=== PATIENT | male | born 1955 | race Two or more races ===

== ENCOUNTER 2024-03-07 09:28 | Outpatient (AMB) | payer OTHER, SELFPAY ==
--- NOTE | 2024-03-07 09:43 | MHC.OFFVIS ---
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 He describes his pains as sharp in nature. Did have cortisone injections given into both of his knee several years ago. He got fairly good relief temporary relief from those injections. He states that his right knee will give out at times. He has tried Tylenol and ibuprofen which gave him only mild relief. He has done physical therapy exercises which aggravated his pain. He states that he has difficulty walking even short distances because of his pains. He wishes to hold off on surgery for as long as possible. 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 Allergies Penicillins Allergy (Unknown, Verified 03/07/24 09:44) Unknown Medication List - Last Reconciled 03/07/24 by Hugo Soto MD amlodipine 5 mg PO DAILY aspirin 81 mg PO DAILY hydrochlorothiazide 25 mg PO DAILY isosorbide mononitrate ER 30 mg PO DAILY losartan 100 mg PO DAILY melatonin 3 mg PO BEDTIME omeprazole 20 mg PO DAILY sertraline 50 mg PO DAILY Physical Exam Vital Signs: BMI result Body Mass Index 35.2 Const Other: Well-nourished well-developed very friendly male awake alert and oriented x3 in no acute distress Extrem Other: Bilateral lower extremity examination shows good capillary refill, no skin lesions noted, normal sensation light touch Bilateral knee examination shows minimal effusions, palpable crepitus with range of motion, pain with range of motion, range of motion from-3 degrees to 115 degrees, no instability Office Procedures AMB Joint Injection/Aspiration Joint Injection/Aspiration Primary Site: right knee Prep: site was prepped using aseptic technique Injected: 40 mg of, DepoMedrol and 1% plain lidocaine Procedure: The patient tolerated the procedure well Coding - Large joint Procedure code (CPT) selection complete AMB Joint Injection/Aspiration Joint Injection/Aspiration Primary Site: left knee Prep: site was prepped using aseptic technique Injected: 40 mg of, DepoMedrol and 1% plain lidocaine Procedure: The patient tolerated the procedure well Coding 34449 - Large joint Procedure code (CPT) selection complete Results Reviewed Results Reviewed: X-rays of the patient's bilateral knees show joint space narrowing, subchondral sclerosis, no acute bony abnormalities Assessment & Plan Assessment & Plan (1) Arthritis of right knee: Code(s): M17.11 - Unilateral primary osteoarthritis, right knee Category: Medical Plan Dimitri presents with bilateral knee pains due to osteoarthritis. I had a lengthy discussion with the patient regarding the treatment options. The risks and benefits of bilateral knee cortisone injections were discussed at length with the patient. The patient wished to proceed. He tolerated the injections well. Prior to his left knee injection I aspirated 12 cc of clear fluid from his left knee. Prior to his right knee injection I aspirated 1 cc of clear fluid from his right knee. The patient tolerated the injections well. He will continue with his activity modifications. He will contact me prior to his follow-up appointment 3 months should any questions or concerns arise. Feel free to call me at any time should questions regarding his orthopedic management arise. Thank you very much for asking me to see this very friendly gentleman. I spent 22 minutes in reviewing the patient's records and imaging studies, seeing the patient and documenting in the medical record. Orders: Orders XR knee RT 3V Today M25.561 - Pain in right knee AMB Joint Injection/Aspiration Today M17.12 - Unilateral primary osteoarthritis, left knee AMB Joint Injection/Aspiration Today M17.11 - Unilateral primary osteoarthritis, right knee XR knee LT 3V Today M25.562 - Pain in left knee Medications: New naproxen 500 mg PO Q12H PRN 60 tabs 3RF pain Coding Level of Care Code New Pt Level 3 (74717) Complex EM visit Add On G2211 Diagnoses Arthritis of right knee M17.11 CPT Codes Coding - 43104 Large joint: 34538 - Large joint ([id number]) Coding - 70617 Large joint: 79391 - Large joint ([id number])
[2024-03-07 10:04] VITALS: BMI 35.2
== END 2024-03-07 10:34 | disposition home or self-care (01) ==
PROVIDERS: Visit Provider Orthopaedic Surgery
DX: M17.11 Unilateral primary osteoarthritis, right knee (principal)
CPT/HCPCS: 20610; 99204

== ENCOUNTER 2024-03-07 10:07 | Outpatient (REF) | payer OTHER, SELFPAY | END 2024-03-07 10:08 | disposition home or self-care (01) | LOC: HO.HOSX 10:07 | PROVIDERS: Visit Provider Orthopaedic Surgery | DX: M17.0 Bilateral primary osteoarthritis of knee (principal); M25.561 Pain in right knee; M25.562 Pain in left knee | CPT/HCPCS: 20610; 73562; 99202; J1010; J2003 ==

== ENCOUNTER 2024-06-05 12:28 | Outpatient (AMB) | payer OTHER, SELFPAY ==
--- NOTE | 2024-06-05 12:45 | MHC.OFFVIS ---
Vital Signs 06/05/24 12:49 Height 5 ft 10 in Weight 245 lb BMI 35.2 Intake Visit Reasons: Bilateral knee pains, Left shoulder pain and weakness Intake Note: Dimitri is a 68 year old male who presents with complaints of progressively worsening bilateral knee pains as well as left shoulder pain and weakness. The patient states that he injured his left shoulder several years ago while lifting a heavy object. Since that time he has not been able to lift his left hand above shoulder height. He has done physical therapy which aggravated his pain. He has also tried Tylenol and anti-inflammatory medicines which gave him minimal relief. He has failed the last 6 weeks of conservative treatment. He has tried topical creams as well as cortisone injections which gave him minimal relief. The patient describes his knee pains as sharp in nature. He wishes to hold off on total knee replacement surgery for as long as possible. He has had cortisone injections given into his knees which gave him fairly good relief. Allergies Penicillins Allergy (Unknown, Verified 06/05/24 12:49) Unknown Medication List - Last Reconciled 06/05/24 by Hugo Soto MD amlodipine 5 mg PO DAILY aspirin 81 mg PO DAILY hydrochlorothiazide 25 mg PO DAILY isosorbide mononitrate ER 30 mg PO DAILY losartan 100 mg PO DAILY melatonin 3 mg PO BEDTIME naproxen 500 mg PO Q12H PRN omeprazole 20 mg PO DAILY sertraline 50 mg PO DAILY Physical Exam Vital Signs: BMI result Body Mass Index 35.2 Const Other: Well-nourished well-developed very friendly male awake alert and oriented x3 in no acute distress Extrem Other: Left shoulder examination shows decreased range of motion when compared to his right shoulder, 3/5 strength with supraspinatus testing, positive impingement signs, no instability Bilateral knee examination shows palpable crepitus with range of motion, pain with range of motion, range of motion from -3 degrees to 110 degrees, no instability Office Procedures AMB Joint Injection/Aspiration Joint Injection/Aspiration Primary Site: left knee Prep: site was prepped using aseptic technique Injected: 40 mg of, DepoMedrol and 1% plain lidocaine Procedure: The patient tolerated the procedure well Coding 25866 - Large joint Procedure code (CPT) selection complete AMB Joint Injection/Aspiration Joint Injection/Aspiration Primary Site: right knee Prep: site was prepped using aseptic technique Injected: 40 mg of, DepoMedrol and 1% plain lidocaine Procedure: The patient tolerated the procedure well Coding 93827 - Large joint Procedure code (CPT) selection complete Results Reviewed Results Reviewed: X-rays of the patient's bilateral knees taken previously show joint space narrowing, subchondral sclerosis, no acute bony abnormalities Assessment & Plan Assessment & Plan (1) Rotator cuff insufficiency of left shoulder: Code(s): M25.312 - Other instability, left shoulder Category: Medical (2) Arthritis of right knee: Code(s): M17.11 - Unilateral primary osteoarthritis, right knee Category: Medical (3) Arthritis of left knee: Code(s): M17.12 - Unilateral primary osteoarthritis, left knee Category: Medical Plan Dimitri presents with bilateral knee pains due to degenerative joint disease. The risks and benefits of bilateral knee cortisone injections were discussed at length with the patient. The patient wished to proceed. He tolerated the injections well. He also has left shoulder pain and weakness most likely due to a full-thickness rotator cuff tear. Thus, I will send the patient for an MRI of his left shoulder for further evaluation. I will see him back once the MRI is completed to discuss the findings and treatment options. Feel free to call me at any time should questions regarding his orthopedic management arise. I spent 20 minutes in reviewing the patient's records and imaging studies, seeing the patient and documenting in the medical record. Orders: Orders AMB Joint Injection/Aspiration 06/05/24 M17.12 - Unilateral primary osteoarthritis, left knee AMB Joint Injection/Aspiration 06/05/24 M17.11 - Unilateral primary osteoarthritis, right knee MR shoulder LT wo con 06/05/24 M25.312 - Other instability, left shoulder Coding Level of Care Code Est Pt Level 3 (26439) Complex EM visit Add On G2211 Diagnoses Rotator cuff insufficiency of left shoulder M25.312 Arthritis of right knee M17.11 Arthritis of left knee M17.12 CPT Codes Coding - 71693 Large joint: 91047 - Large joint ([id number]) Coding - 51611 Large joint: 61258 - Large joint ([id number])
[2024-06-05 12:49] VITALS: BMI 35.2
--- OUTSIDE RECORDS SUMMARY | 2024-06-05 14:31 | XMS_ITS | Clinical Summary ---
Author Organization [facility] Address [address] [place] [address] Care Team Providers Care Director [employer] Name Role Phone Whitney Manzo NP Primary Care Provider Source Comments PLEASE NOTE, if this patient is a minor, it may be UNLAWFUL to discuss sensitive information that is contained in these records (such as FAMILY PLANNING, MENTAL HEALTH or SUBSTANCE ABUSE) with the minor patient's parent or other person without the patient's specific authorization.[facility] Allergies Active Allergy Reactions Criticality Noted Date Comments Penicillins 01/12/2021 Medications ibuprofen 800 mg tablet 1 Active blood pressure monitorIndicatio ns:Essential hypertension Lifetime need 1 Kit 3 Active amLODIPine (NORVASC) 5 mg tabletIndication s:Essential hypertension Take 1 Tablet by mouth once daily 90 Tablet 4 Active aspirin [address] tabletIndication s:Essential hypertension Take 1 Tablet by mouth once daily 90 Tablet 1 4 Active hydroCHLOROthiaz sharri (HYDRODIURIL) 25 mg tabletIndication s:Essential hypertension TOME JENNIFER TABLETA TODOS LOS TIDWELL Strength: 25 mg 90 Tablet 1 4 Active isosorbide mononitrate ER (IMDUR) 30 mg 24 hr tabletIndication s:Essential hypertension TOME JENNIFER TABLETA TODOS LOS TIDWELL EN LA MANANA 90 Tablet 4 Active melatonin 3 mg tabletIndication s:Poor sleep TAKE 1 TABLET BY MOUTH NIGHTLY AT BEDTIME NEEDED FOR SLEEP 90 Tablet 1 4 Active doxylamine succinate (SLEEP AID, DOXYLAMINE,) 25 mg tabletIndication s:Insomnia, unspecified type Take 1 Tablet by mouth nightly at bedtime as needed for sleep for sleep 90 Tablet 4 Active furosemide (LASIX) 40 mg tabletIndication s:Bilateral leg edema Take 1 Tablet by mouth once daily 14 Tablet 4 Active compress.stockin g,knee,reg,medIn dications:Bilate ral leg edema Please dispense 1 pairs of compression stockings 15 mmhg 3 Each 4 Active sertraline (ZOLOFT) 50 mg tabletIndication s:Anxiety and depression TAKE 1 TABLET BY MOUTH ONCE DAILY 90 Tablet 3 4 Active atorvastatin (LIPITOR) 20 mg tabletIndication s:Hypercholester olemia TAKE 1 TABLET BY MOUTH AT BEDTIME 90 Tablet 3 4 Active losartan (COZAAR) 100 mg tablet TAKE 1 TABLET BY MOUTH ONCE DAILY 90 Tablet 2 4 Active omeprazole (PRILOSEC) [address] capsuleIndicatio ns:Gastroesophag eal reflux disease, unspecified whether esophagitis present TAKE 1 CAPSULE BY MOUTH IN THE MORNING BEFORE BREAKFAST 30 Capsule 5 5 Active Active Problems Problem Noted Date Diagnosed Date PVC (premature ventricular contraction) 08/03/19 Overview (12/15/2022): 12/14/22: seen with PVC 09/19/22: seen with PVC c/w amlodipine 09/09/21: seen with PVC Holter and echo ordered unclear if pt completed this or not PR (myocardial infarction) ([facility]) 01/12/2021 Overview (01/12/2021): Verbal report from pt Class 2 severe obesity with serious comorbidity and body mass index (BMI) of 37.0 to 37.9 in adult ([facility]) 01/11/2021 Essential hypertension 01/11/2021 Overview (08/02/2022): 12/2021: followed with PVC last appt Seeing Cardiology at [place]. Hypercholesterolemia 01/11/2021 Anxiety and depression 01/11/2021 Primary osteoarthritis of both knees 12/13/2020 Overview (08/02/2022): Seeing [facility] for knee pain. Resolved Problems Problem Noted Date Diagnosed Date Resolved Date Diarrhea 01/12/2021 02/11/2021 Immunizations Name Administration Dates Next Due Flu, High Dose, 65y+, Fluzon e High Dose 03/24/2022,01/12/2021 Influenza (FLUBLOK),recombinant,injectable,prese rvative Free 01/29/2024(Deferred: Different Brand Given) Influenza (FLUZONE), high-do se, trivalent, PF 01/29/2024 PNEUMOCOCCAL POLYSACCHARIDE PPV23 08/02/2022, TDAP 01/12/2021 ZOSTER VACCINE, RECOMBINANT (SHINGRIX) ,01/12/2021 Family History Medical History Relation Name Comments cardaic issues Father Ovarian cancer Mother Relation Name Status Comments Father Alive Mother Alive Social History Tobacco Use Types Packs/Day Years Used Date Smoking Tobacco: Former Passive Smoke Exposure: Never Smokeless Tobacco: Never Tobacco Cessation:Counseling Given: Not Answered Comments:11/08/22: was smoking in the past socially Alcohol Use Standard Drinks/Week Comments Not Currently 0 (1 standard drink = 0.6 oz pur e alcohol) Social Connections Answer Date Recorded Connectedness 1 01/29/2024 Financial Resource Strain Answer Date R ecorded Financial Resource Strain 1 2023 Stress Answer Date Recorded Stress 1 01/29/2024 Physical Activity Answer Date Recorded Physical Activity 0 11/10/2020 Food Insecurity Answer Date Recorded Food 1 01/29/2024 Transportation Needs Answer Date Record ed Transportation 1 01/29/2024 Housing Stability Answer Date Recorded Housing 1 01/29/2024 Safety and Environment Answer Date Cristian rded Safety 1 07/25/2023 Utilities Answer Date Recorded Utilities 1 01/29/2024 Employment Answer Date Recorded Stress 0 11/23/2021 Sex and Gender Information Value Date Recorded Sex Assigned at Male 11/17/2020 10:36 AM PDT Legal Sex Male 12:42 PM PDT Gender Identity Male 11/17/2020 10:36 AM PDT Sexual Orientation Straight 01/29/2024 10 :08 AM PST Occupation Industry Job Start Date Job End Date unemployed Not on file Not on file Not on file Last Filed Vital Signs Vital Sign Reading Time Taken Comments Blood Pressure 138/80 01/29/2024 1:34 PM EST Pulse 91 01/29/2024 1:34 PM EST Temperature 37 ??C (98.6 ??F) 01/29/2024 1:34 PM EST Respiratory Rate 20 01/29/2024 1:34 PM EST Oxygen Saturation 97% 01/29/2024 1:34 PM EST Inhaled Oxygen Concentration - - Weight 113.4 kg (250 lb) 01/29/2024 1:34 PM EST Height 167.6 cm (5' 6 ) 07/25/2023 3:08 PM EDT Body Mass Index 40.35 07/25/2023 3:08 PM EDT Plan of Treatment Upcoming Encounters Date Type Department Care Team (Late st Contact Info) Description 06/20/2024 11:20 AM EDT Office Visit [facility] [address] [place] [id number] Peter Cabrlaes PA-C [address] [place] [address] Health Maintenance Due Date Last Done Comments CT Colonography 08/16/1999 Colonoscopy 08/16/1999 Colorectal Cancer Screening 08/16/1999 FIT/gFOBT 08/16/1999 Fecal DNA 08/16/1999 Flexible Sigmoidoscopy 08/16/1999 Abdominal Aortic Aneurysm Screening 08/16/2019 Imm-Pneumococcal 65+ (2 of 2 - PCV) 08/03/2023 08/02/2022, 01/12/2021 Medicare Annual Wellness Visit 11/09/2023 11/08/2022 , 01/12/2021 [id number] ( season) 2023 Alcohol and Drug Screen 03/27/2024 01/29/20 24, 04/24/2023, 08/02/2022, Additional history exists Falls Prevention 04/24/2024 04/24/2023, , 01/12/2021, Additional history exists Lipid Screening 04/24/2024 04/24/2023, 12/11/2021, 11/10/2020 Depression Monitoring 04/30/2024 01/29/2024 , 07/25/2023, 04/24/2023, Additional history exists Tobacco Screening 01/28/2025 01/29/2024, 01/12/2021 Diabetes Screening 01/28/2027 01/29/2024, 0 04/24/2023, 03/24/2022, Additional history exists Imm-DTaP/Tdap/Td (2 - Td or Tdap) 01/12/2031 021 Imm-Zoster, Recombinant Completed 03/24/2022, 01/12 Hepatitis C Screening Completed 01/29/2024 Imm-Influenza Completed 01/29/2024, 02/25, 01/12/2021 Procedures Procedure Name Priority Date/Time Associated Diagnosis Comments MEDICATIONS SCANNED DOCUMENT 05/17/2024 3:00 AM EST REFERRAL TO ORTHOPEDICS Routine 03/07/2024 3:00 AM EST Primary osteoarthritis of both knees HEPATITIS C AB W/RFLX HCV RNA, QT, RT PCR Routine 01/29/2024 2:02 PM EST Essential hypertension COMPREHENSIVE METABOLIC PANEL Routine 01/29/2024 2:02 PM EST Bilateral leg edema LIPID PANEL Routine 04/24/2023 2:15 PM EST Hypercholesterolemia from Last 3 Months or Most Recently Relevant to Health Maintenance Results * MEDICATIONS SCANNED DOCUMENT (05/17/2024 3:00 AM EST) 05/17/2024 3:00 AM EST [facility] Provider Default SCAN MEDS OTHER ORDERS Fin al Result * REFERRAL TO ORTHOPEDICS (03/07/2024 3:00 AM EST) 03/07/2024 3:00 AM EST Whitney Manzo NP REFERRAL Final Result * HEPATITIS C AB W/RFLX HCV RNA, QT, RT PCR (01/29/2024 2:02 PM EST) HEPATITIS C ANTIBODY NON-REACT DAJA NON-REACT DAJA [facility] Comment: HCV antibody was non-reactive. There is no laboratory evidence of HCV infection. In most cases, no further action is required. However, if recent HCV exposure is suspected, a test for HCV RNA (test code 94948) is suggested. For additional information please refer to http://education.[employer]/faq/FLZ92k9 (This link is being provided for informational/ educational purposes only.) Blood Blood / Unknown 01/29/2024 2 :02 PM EST 01/29/2024 2:02 PM EST Narrative [facility] - 01/31/2024 2:15 AM EST FASTING:NO us Whitney Manzo NP LAB - BLOOD DRAW Final Resul t [facility] [address] [address], [facility] [address] [address] * COMPREHENSIVE METABOLIC PANEL (01/29/2024 2:02 PM EST) GLUCOSE 92 65 - 139 mg/dL [facility] Comment: ?Non-fasting reference interval UREA NITROGEN (BUN) 17 7 - 25 mg/dL [facility] CREATININE (blood) 1.00 0.70 - 1.35 mg/dL [facility] EGFR 81 > OR = 60 mL/min/1. 73m2 [facility] BUN/CREATININE RATIO SEE NOTE: [facility] Comment: ?? Not Reported: BUN and Creatinine are within ?? reference range. ? SODIUM 142 135 - 146 mmol/L [facility] POTASSIUM 3.7 3.5 - 5.3 mmol/L [facility] CHLORIDE 106 98 - 110 mmol/L [facility] CARBON DIOXIDE 28 20 - 32 mmol/L [facility] CALCIUM 8.7 8.6 - 10.3 mg/dL [facility] PROTEIN, TOTAL 6.9 6.1 - 8.1 g/dL [facility] ALBUMIN 4.2 3.6 - 5.1 g/dL [facility] GLOBULIN 2.7 1.9 - 3.7 g/dL (calc) [facility] ALBUMIN/GLOBULI N RATIO 1.6 1.0 - 2.5 (calc) [facility] BILIRUBIN, TOTAL 0.4 0.2 - 1.2 mg/dL [facility] ALKALINE PHOSPHATASE 85 35 - 144 U/L [facility] AST 16 10 - 35 U/L [facility] ALT 14 9 - 46 U/L [facility] Blood Blood / Unknown 01/29/2024 2 :02 PM EST 01/29/2024 2:02 PM EST Narrative [facility] - 01/31/2024 2:15 AM EST FASTING:NO us Whitney Manzo NP LAB - BLOOD DRAW Edited Resu lt - Final [facility] [address] [address], [facility] [address] [address] * LIPID PANEL (04/24/2023 2:15 PM EST) CHOLESTEROL, TOTAL 158 <200 mg/dL [facility] HDL CHOLESTEROL 50 > OR = 40 mg/dL [facility] TRIGLYCERIDES 105 <150 mg/dL [facility] LDL-CHOLESTEROL 88 99 mg/dL (calc) [facility] Comment: Reference range: <100 Desirable range <100 mg/dL for primary prevention; ?? <70 mg/dL for patients with CHD or diabetic patients with > or = 2 CHD risk factors. LDL-C is now calculated using the Chaim-Mera calculation, which is a validated novel method providing better accuracy than the Friedewald equation in the estimation of LDL-C. Chaim PEREZ et al. COLT. 2013;310(19): 4961-2258 (http://education.[employer]/faq/KIL335) CHOL/HDLC RATIO 3.2 <5.0 (calc) [facility] NON-HDL CHOLESTEROL 108 <130 mg/dL (calc) [facility] Comment: For patients with diabetes plus 1 major ASCVD risk factor, treating to a non-HDL-C goal of <100 mg/dL (LDL-C of <70 mg/dL) is considered a therapeutic option. Blood Blood / Unknown 04/24/2023 2 :15 PM EST 04/24/2023 2:16 PM EST Narrative [facility] - 04/25/2023 3:52 AM EST FASTING:YES [facility] LAB - BLOOD DRAW Final Result [facility] [address] [address], [facility] [address] [place] [address] from Last 3 Months or Most Recently Relevant to Health Maintenance Insurance [facility] Member Subscriber Plan / Payer (Ef fective 2020-Present) Name:Dimitri Paz Relation to Subscriber:Self Name:Dimitri Paz Payer ID:[id number] Group ID:Not on file Type:Indemnity Address: [facility] [address] [id number] Care Teams Director [employer] Relationship Specialty Start Date End Date Whitney Manzo NP [address] [place] [address] PCP - General Internal Medicine 04/21/22
== END 2024-06-05 13:08 | disposition home or self-care (01) ==
LOC: HO.HOS 12:28
PROVIDERS: Visit Provider Orthopaedic Surgery
DX: M25.312 Other instability, left shoulder (principal); M17.0 Bilateral primary osteoarthritis of knee
CPT/HCPCS: 20610; 99213

== ENCOUNTER → 2024-06-05 12:28 | Outpatient (BNVA) | payer OTHER, SELFPAY | PROVIDERS: Visit Provider Orthopaedic Surgery | DX: M17.0 Bilateral primary osteoarthritis of knee (principal); M25.312 Other instability, left shoulder | CPT/HCPCS: 20610; 99212; J1010; J2003 ==

== ENCOUNTER 2024-06-19 11:25 | Outpatient (REF) | payer OTHER, SELFPAY ==
--- NOTE | ~2024-06-19 | MR_ITS ---
EXAMINATION: MR SHOULDER WITHOUT CONTRAST, LEFT CLINICAL INFORMATION: Left shoulder pain, limited range of motion, weakness, 2 months duration. COMPARISON: None TECHNIQUE: Multiplanar multisequence MR imaging of the left shoulder was done without IV contrast. Examination performed on a 1.5 Rere Siemens unit utilizing standard sequences. FINDINGS: Motion degradation on multiple pulse sequences, limiting the sensitivity of the study. Rotator Cuff and Biceps Tendon: Supraspinatus: There is a complete retracted tear of the supraspinatus tendon, with 7 mm of tendinous retraction. There is no atrophy of the muscle belly. Infraspinatus: There is diffuse signal hyperintensity of the distal tendon with mild thickening, findings consistent with moderate tendinopathy. There is no discrete tear. There is no atrophy of the muscle belly. Subscapularis: Appears grossly intact and normal in signal. No discrete tear. No atrophy of the muscle belly. Teres Minor: Intact and normal in signal. Biceps Long Head: Normally located within the bicipital groove. Limited evaluation of the tendon within the rotator interval due to motion and internal rotation. AC Joint and Acromiohumeral Arch: Moderate degenerative arthropathy of the AC joint present with superior and undersurface spurring, and joint capsular distention. There is mild periarticular edema and subchondral cystic changes. There is mild to moderate supraspinatus outlet stenosis. There is a type III acromion. There is minimal undersurface spurring. Glenohumeral Joint and Labrum: Limited evaluation of the labrum due to motion artifact. Minimal degenerative arthropathy in the glenohumeral joint. No gross labral tear identified within the confines. There is mildly increased joint fluid present. There are no significant cartilaginous defects or regions of subchondral bone plate edema. Osseous Structures: No abnormal infiltrating bone marrow signal. Aside from mild periarticular AC joint edema, there are no additional foci of abnormal bone marrow edema. Spino-glenoid Notch: Normal Quadrilateral Space: Normal Other: Fluid in the subacromial/subdeltoid bursa, nonspecific in the setting of full-thickness rotator cuff tear. Similar fluid in the subcoracoid bursa. The glenohumeral ligaments appear intact without thickening or tearing. MR/MR shoulder LT wo con IMPRESSION: 1. Complete retracted tear of the supraspinatus tendon, with 7 mm of tendinous retraction. No atrophy of the muscle belly. 2. Moderate tendinopathy of the infraspinatus tendon. 3. Moderate degenerative arthropathy of the AC joint with both superior and undersurface spurring. There is mild to moderate stenosis of the supraspinatus outlet. 4. Very mild degenerative arthritis in the glenohumeral joint. 5. Limited evaluation of the glenoid labrum due to motion artifact. No definite tear is evident. Electronically signed by: Lex Ramesh MD 06/20/2024 11:43 AM EDT
--- OUTSIDE RECORDS SUMMARY | 2024-06-19 14:05 | XMS_ITS | Clinical Summary ---
Author Organization [facility] Address [address] [place] [address] Care Team Providers Care Rental Boats Caretaker Name Role Phone Whitney Manzo NP Primary [...] unclear if pt completed this or not [place] (myocardial infarction) ([facility]) 01/12/2021 Overview (01/12/2021): Verbal report from pt Class 2 severe obesity with serious comorbidity and body mass index (BMI) of 37.0 to 37.9 in adult ([facility]) 01/11/2021 Essential hypertension 01/11/2021 Overview (08/02/2022): 12/2021: followed with PVC last appt Seeing Cardiology at [place]. Hypercholesterolemia 01/11/2021 Anxiety and depression 01/11/2021 Primary osteoarthritis of both knees 12/13/2020 Overview (08/02/2022): Seeing [facility] for knee pain. Resolved Problems Problem Noted Date Diagnosed Date Resolved Date Diarrhea 01/12/2021 02/11/2021 Immunizations Immunization Administration Dates Next Due Flu, High Dose, [...] Description 06/20/2024 11:20 AM EDT Office Visit [facility] [address] [place] [id number] Peter Cabrales PA-C [address] [place] [address] Health Maintenance Due Date Last Done Comments CT Colonography 08/16/1999 Colonoscopy 08/16/1999 Colorectal Cancer Screening 08/16/1999 FIT/gFOBT 08/16/1999 Fecal DNA 08/16/1999 Flexible Sigmoidoscopy 08/16/1999 Abdominal Aortic Aneurysm Screening 08/16/2019 Imm-Pneumococcal 65+ (2 of 2 - PCV) 08/03/2023 08/02/2022, 01/12/2021 Medicare Annual Wellness Visit 11/09/2023 11/08/2022 , 01/12/2021 [id number] ( season) 2023 Alcohol and Drug Screen [...] MEDICATIONS SCANNED DOCUMENT 05/17/2024 3:00 AM EST HEPATITIS C AB W/RFLX HCV RNA, QT, RT PCR Routine 01/29/2024 2:02 PM EST Essential hypertension COMPREHENSIVE METABOLIC PANEL Routine 01/29/2024 2:02 PM EST Bilateral leg edema LIPID PANEL Routine 04/24/2023 2:15 PM EST Hypercholesterolemia from Last 3 Months or Most Recently Relevant to Health Maintenance Results * MEDICATIONS SCANNED DOCUMENT (05/17/2024 3:00 AM EST) 05/17/2024 3:00 AM EST [facility] Provider Default SCAN MEDS OTHER ORDERS Fin al Result * HEPATITIS C AB W/RFLX HCV RNA, QT, RT PCR (01/29/2024 2:02 PM EST) Pathologist [facility] HEPATITIS C ANTIBODY NON-REACT DAJA NON-REACT DAJA [facility] Comment: HCV antibody was non-reactive. There is no laboratory evidence of HCV infection. In most cases, no further action is required. However, if recent HCV exposure is suspected, a test for HCV RNA (test code 05971) is suggested. For additional information please refer to http://education.[employer]/faq/LXC94q3 (This link is being provided for informational/ educational purposes only.) Blood Blood / Unknown 01/29/2024 2 :02 PM EST 01/29/2024 2:02 PM EST Narrative [facility] - 01/31/2024 2:15 AM EST FASTING:NO Whitney Manzo NP LAB - BLOOD DRAW Final Resul t [facility] [address] [address], [facility] [address] [place] [address] * COMPREHENSIVE METABOLIC PANEL (01/29/2024 2:02 PM EST) Pathologist [facility] GLUCOSE 92 65 - 139 mg/dL [facility] Comment: ?Non-fasting reference interval UREA NITROGEN (BUN) 17 7 - 25 mg/dL [facility] CREATININE (blood) 1.00 0.70 - 1.35 mg/dL [facility] EGFR 81 > OR = 60 mL/min/1. 73m2 [facility] BUN/CREATININE RATIO SEE NOTE: [employer] [facility] Comment: ?? Not Reported: BUN and Creatinine are within ?? reference range. ? SODIUM 142 135 - 146 mmol/L [facility] POTASSIUM 3.7 3.5 - 5.3 mmol/L [facility] CHLORIDE 106 98 - 110 mmol/L [facility] CARBON DIOXIDE 28 20 - 32 mmol/L [facility] CALCIUM 8.7 8.6 - 10.3 mg/dL [facility] PROTEIN, TOTAL 6.9 6.1 - 8.1 g/dL [facility] ALBUMIN 4.2 3.6 - 5.1 g/dL [facility] GLOBULIN 2.7 1.9 - 3.7 g/dL (calc) [facility] ALBUMIN/GLOBULI N RATIO 1.6 1.0 - 2.5 (calc) [facility] BILIRUBIN, TOTAL 0.4 0.2 - 1.2 mg/dL [facility] ALKALINE PHOSPHATASE 85 35 - 144 U/L [employer] [facility] AST 16 10 - 35 U/L [facility] ALT 14 9 - 46 U/L [facility] Blood Blood / Unknown 01/29/2024 2 :02 PM EST 01/29/2024 2:02 PM EST Narrative [facility] - 01/31/2024 2:15 AM EST FASTING:NO Whitney Manzo SET UP OPERATOR LAB - BLOOD DRAW Edited Resu lt - Final Performing Organization Address City/[facility]/ZIP Co de Phone Number [facility] [address] [address], [facility] [address] [address] * LIPID PANEL (04/24/2023 2:15 PM EST) [facility] CHOLESTEROL, TOTAL 158 <200 mg/dL [facility] HDL CHOLESTEROL 50 > OR = 40 mg/dL [facility] TRIGLYCERIDES 105 <150 mg/dL [facility] LDL-CHOLESTEROL 88 99 mg/dL (calc) [facility] Comment: Reference range: <100 Desirable range <100 mg/dL for primary prevention; ?? <70 mg/dL for patients with CHD or diabetic patients with > or = 2 CHD risk factors. LDL-C is now calculated using the Chaim-Mera calculation, which is a validated novel method providing better accuracy than the Friedewald equation in the estimation of LDL-C. Chaim SS et al. COLT. 2013;310(19): 6192-4628 (http://education.Mobim/faq/SBC031) CHOL/HDLC RATIO 3.2 <5.0 (calc) [facility] NON-HDL CHOLESTEROL 108 <130 mg/dL (calc) [facility] Comment: For patients with diabetes plus 1 major ASCVD risk factor, treating to a non-HDL-C goal of <100 mg/dL (LDL-C of <70 mg/dL) is considered a therapeutic option. Blood Blood / Unknown 04/24/2023 2 :15 PM EST 04/24/2023 2:16 PM EST Narrative [facility] - 04/25/2023 3:52 AM EST FASTING:YES [facility] LAB - BLOOD DRAW Final Result Performing Organization Address City/[facility]/ZIP Co de Phone Number [facility] [address] [address], [employer] [address] [address] from Last 3 Months or Most Recently Relevant to Health Maintenance Insurance [facility] Member Subscriber Plan / Payer (Ef fective 2020-Present) Name:Dimitri Paz Relation to Subscriber:Self Name:Joe McdanielDimitri Payer ID:[id number] Group ID:Not on file Type:Indemnidebbie Address: [place] [address] [address] [address] Care Teams Rental Boats Caretaker Relationship Specialty Start Date End Date Whitney Manzo NP [address] [place] [address] PCP - General Internal Medicine 04/21/22
== END 2024-06-19 11:26 | disposition home or self-care (01) ==
LOC: HO.MRI 11:25
PROVIDERS: Visit Provider Orthopaedic Surgery
DX: M25.312 Other instability, left shoulder (principal)
CPT/HCPCS: 73221

== ENCOUNTER → 2024-06-19 11:35 | Outpatient (BNV) | payer OTHER, SELFPAY | PROVIDERS: Visit Provider Radiology Diagnostic Radiology | DX: M75.122 Complete rotator cuff tear or rupture of left shoulder, not specified as traumatic (principal); M75.32 Calcific tendinitis of left shoulder; M19.012 Primary osteoarthritis, left shoulder; M75.42 Impingement syndrome of left shoulder | CPT/HCPCS: 73221 ==

== ENCOUNTER 2024-07-23 12:48 | Outpatient (AMB) | payer OTHER, SELFPAY ==
--- NOTE | 2024-07-23 13:05 | A.OFFVIS_ITS ---
Vital Signs 07/23/24 13:06 Height 5 ft 10 in Weight 245 lb BMI 35.2 Intake Visit Reasons: OV-Left shoulder MRI follow up Intake Note: Dimitri is a 68-year-old male who presents with complaints of left shoulder pain and weakness. The patient did injure his shoulder several years ago while lifting a heavy object. He describes his pain as sharp in nature. The patient states that he is not able to lift his left hand above shoulder height. He has done physical therapy exercises which aggravated his pain. He has also tried Tylenol and anti-inflammatory medicines which gave him minimal relief. Commercial Shrimping Captain Required: Yes Commercial Shrimping Captain Services: Commercial Shrimping Captain Offered & Declined Allergies Penicillins Allergy (Unknown, Verified 07/23/24 13:06) Unknown Medication List - Last Reconciled 07/23/24 by Hugo Soto MD amlodipine 5 mg PO DAILY aspirin 81 mg PO DAILY hydrochlorothiazide 25 mg PO DAILY isosorbide mononitrate ER 30 mg PO DAILY losartan 100 mg PO DAILY melatonin 3 mg PO BEDTIME naproxen 500 mg PO Q12H PRN omeprazole 20 mg PO DAILY sertraline 50 mg PO DAILY Physical Exam Vital Signs: BMI result Body Mass Index 35.2 Const Other: Well-nourished well-developed very friendly male awake alert and oriented x3 in no acute distress Extrem Other: Bilateral upper extremity examination shows good capillary refill, no skin lesions noted, normal sensation light touch Left shoulder examination shows decreased range of motion when compared to his right shoulder, 3/5 strength with supraspinatus testing, positive impingement signs, tenderness over his acromioclavicular joint, no instability Results Reviewed Results Reviewed: MRI of the patient's left shoulder show severe acromioclavicular joint narrowing, a type 2 acromion, a full-thickness tear of the supraspinatus tendon Assessment & Plan Assessment & Plan (1) Rotator cuff insufficiency of left shoulder: Code(s): M25.312 - Other instability, left shoulder Category: Medical Plan Mr. Joe Mcdaniel presents with left shoulder pain and weakness due to impingement syndrome, acromioclavicular joint arthritis and a full-thickness rotator cuff tear. I had a lengthy discussion with the patient regarding the treatment options. At this point he has failed continued non operative treatments. The risks and benefits of left shoulder surgery were discussed at length with the patient. The patient wishes to proceed with surgery. Surgery will involve left shoulder diagnostic arthroscopy with arthroscopic distal clavicle excision, arthroscopic acromioplasty and mini-open rotator cuff repair. The patient will be scheduled for next available date. He will follow-up as instructed. I spent 20 minutes in reviewing the patient's records and imaging studies, seeing the patient and documenting in the medical record. Coding Level of Care Code Est Pt Level 3 (42144) Complex EM visit Add On G2211 Diagnoses Rotator cuff insufficiency of left shoulder M25.312
[2024-07-23 13:06] VITALS: BMI 35.2
--- OUTSIDE RECORDS SUMMARY | 2024-07-23 14:39 | XMS_ITS | Clinical Summary ---
Author Organization [facility] Address [address] [place] [address] Care Team Providers Care Gauge Checker Name Role Phone ManzoWhitney Balderas NP Primary Care Provider Source Comments PLEASE [...] Penicillins 01/12/2021 Medications ibuprofen 800 mg tablet 01/22/20 21 Active blood pressure monitorIndicati ons:Essential hypertension Lifetime need 1 Kit 08/03/19 [address] Active [address] tabletIndicatio ns:Essential hypertension Take 1 Tablet by mouth once daily 90 Tablet 1 01/29/20 24 Active hydroCHLOROthia zide (HYDRODIURIL) 25 mg tabletIndicatio ns:Essential hypertension TOME JENNIFER TABLETA TODOS LOS TIDWELL Strength: 25 mg 90 Tablet 1 01/29/20 24 Active isosorbide mononitrate ER (IMDUR) 30 mg 24 hr tabletIndicatio ns:Essential hypertension TOME JENNIFER TABLETA TODOS LOS TIDWELL EN LA MANANA 90 Tablet 01/29/20 24 Active melatonin 3 mg tabletIndicatio ns:Poor sleep TAKE 1 TABLET BY MOUTH NIGHTLY AT BEDTIME NEEDED FOR SLEEP 90 Tablet 1 01/29/20 24 Active furosemide (LASIX) 40 mg tabletIndicatio ns:Bilateral leg edema Take 1 Tablet by mouth once daily 14 Tablet 01/29/20 24 Active compress.stocki ng,knee,reg,med Indications:Adriel ateral leg edema Please dispense 1 pairs of compression stockings 15 mmhg 3 Each 01/29/20 24 Active sertraline (ZOLOFT) 50 mg tabletIndicatio ns:Anxiety and depression TAKE 1 TABLET BY MOUTH ONCE DAILY 90 Tablet 3 03/13/20 24 Active atorvastatin (LIPITOR) 20 mg tabletIndicatio ns:Hypercholest erolemia TAKE 1 TABLET BY MOUTH AT BEDTIME 90 Tablet 3 03/22/20 24 Active losartan (COZAAR) 100 mg tablet TAKE 1 TABLET BY MOUTH ONCE DAILY 90 Tablet 2 03/22/20 24 Active omeprazole (PRILOSEC) [address] capsuleIndicati ons:Gastroesoph ageal reflux disease, unspecified whether esophagitis present TAKE 1 CAPSULE BY MOUTH IN THE MORNING BEFORE BREAKFAST 30 Capsule 5 04/25/19 25 Active naproxen (NAPROSYN) 500 mg tablet PER [facility] 05/08/19 25 Active cyclobenzaprine (FLEXERIL) 5 mg tabletIndicatio ns:Muscle cramps Take 1 Tablet by mouth 3 (three) times daily as needed for muscle spasms For muscle spasms 15 Tablet 06/21/19 25 Active amLODIPine (NORVASC) 5 mg tabletIndicatio ns:Essential hypertension TAKE 1 TABLET BY MOUTH ONCE DAILY 30 Tablet 2 07/23/19 25 Active SLEEP AID, DOXYLAMINE, 25 mg tabletIndicatio ns:Insomnia, unspecified type TAKE 1 TABLET BY MOUTH EVERY NIGHT AT BEDTIME NEEDED FOR SLEEP 30 Tablet 2 07/23/19 25 Active amLODIPine (NORVASC) 5 mg tabletIndicatio ns:Essential hypertension Take 1 Tablet by mouth once daily 90 Tablet 01/29/20 24 025 Discontinued doxylamine succinate (SLEEP AID, DOXYLAMINE,) 25 mg tabletIndicatio ns:Insomnia, unspecified type Take 1 Tablet by mouth nightly at bedtime as needed for sleep for sleep 90 Tablet 01/29/20 24 025 Discontinued Active Problems Problem Noted Date Diagnosed Date PVC (premature ventricular contraction) 08/03/19 Overview (12/15/2022): 12/14/22: seen with PVC 09/19/22: seen with PVC c/w amlodipine 09/09/21: seen with PVC Holter and echo ordered unclear if pt completed this or not [place] (myocardial infarction) ([facility]) 01/12/2021 Overview (01/12/2021): Verbal report from pt Class 2 severe obesity with serious comorbidity and body mass index (BMI) of 37.0 to 37.9 in adult ([facility]) 01/11/2021 Essential hypertension 01/11/2021 Overview (08/02/2022): 12/2021: followed with PVC last appt Seeing Cardiology at [place]. Hypercholesterolemia 01/11/2021 Anxiety and depression 01/11/2021 Primary osteoarthritis of both knees 12/13/2020 Overview (08/02/2022): Seeing [facility] for knee pain. Resolved Problems Problem Noted Date Diagnosed Date Resolved Date Diarrhea 01/12/2021 02/11/2021 Encounters Date Type Department Care Team Description 06/20/2024 11:20 AM EDT Office Visit [address] [address] Peter Cabrales PA-C Medication management (Primary Dx); Muscle cramps from Last 3 Months Immunizations Immunization Administration Dates Next Due Flu, [...] Sign Reading Time Taken Comments Blood Pressure 128/66 06/20/2024 11:29 AM EDT Pulse 87 06/20/2024 11:13 AM EDT Temperature 36.6 ??C (97.8 ??F) 06/20/2024 11:13 AM E DT Respiratory Rate 20 06/20/2024 11:13 AM EDT Oxygen Saturation 98% 06/20/2024 11:13 AM EDT Inhaled Oxygen Concentration - - Weight 114.8 kg (253 lb) 06/20/2024 11:13 AM EDT Height 167.6 cm (5' 6 ) 06/20/2024 11:13 AM EDT Body Mass Index 40.84 06/20/2024 11:13 AM EDT Plan of Treatment Health Maintenance Due Date Last Done Comments CT Colonography 08/16/1999 Colonoscopy 08/16/1999 Colorectal Cancer Screening 08/16/1999 FIT/gFOBT 08/16/1999 Fecal DNA 08/16/1999 Flexible Sigmoidoscopy 08/16/1999 Abdominal Aortic Aneurysm Screening 08/16/2019 Imm-Pneumococcal 65+ (2 of 2 - PCV) 08/03/2023 08/02/2022, 01/12/2021 Medicare Annual Wellness Visit 11/09/2023 11/08/2022 , 01/12/2021 [id number] ( season) 2023 Falls Prevention 04/24/2024 04/24/2023, , 01/12/2021, Additional history exists Lipid Screening 04/24/2024 04/24/2023, 02/25, 11/10/2020 Depression Monitoring 09/20/2024 06/20/2024 , 01/29/2024, 07/25/2023, Additional history exists Tobacco Screening 06/20/2025 06/20/2024, 01/12/2021 Diabetes Screening 01/28/2027 01/29/2024, 0 04/24/2023, 03/24/2022, Additional history exists Imm-DTaP/Tdap/Td (2 - Td or Tdap) 01/12/2031 021 Imm-Zoster, Recombinant Completed 03/24/2022, 01/12 Hepatitis C Screening Completed 01/29/2024 Imm-Influenza Completed 01/29/2024, 02/25, 01/12/2021 Alcohol and Drug Screen Completed 06/21/19, 01/29/2024, 04/24/2023, Additional history exists Procedures Procedure Name Priority Date/Time Associated Diagnosis [...] 3:00 AM EST) 05/17/2024 3:00 AM EST [facility] Provider Default SCAN MEDS OTHER ORDERS Fin al Result * HEPATITIS C AB W/RFLX HCV RNA, QT, RT PCR (01/29/2024 2:02 PM EST) Pathologist [facility] HEPATITIS C ANTIBODY NON-REACT DAJA NON-REACT DAJA [employer] Comment: HCV antibody was non-reactive. There is no laboratory evidence of HCV infection. In most cases, no further action is required. However, if recent HCV exposure is suspected, a test for HCV RNA (test code 67255) is suggested. For additional information please refer to http://education.MYagonism.com/faq/PAG04h5 (This link is being provided for informational/ educational purposes only.) Blood Blood / Unknown 01/29/2024 2 :02 PM EST 01/29/2024 2:02 PM EST Narrative [facility] - 01/31/2024 2:15 AM EST FASTING:NO Whitney Manzo NP LAB - BLOOD DRAW Final Resul t [facility] [address] [address], [employer] [address] [address] * COMPREHENSIVE METABOLIC PANEL (01/29/2024 2:02 PM EST) [facility] GLUCOSE 92 65 - 139 mg/dL [employer] Comment: ?Non-fasting reference interval UREA NITROGEN (BUN) 17 7 - 25 mg/dL [employer] CREATININE (blood) 1.00 0.70 - 1.35 mg/dL [employer] EGFR 81 > OR = 60 mL/min/1. 73m2 [employer] BUN/CREATININE RATIO SEE NOTE: [employer] Comment: ?? Not Reported: BUN and Creatinine are within ?? reference range. ? SODIUM 142 135 - 146 mmol/L [employer] POTASSIUM 3.7 3.5 - 5.3 mmol/L [employer] CHLORIDE 106 98 - 110 mmol/L [employer] CARBON DIOXIDE 28 20 - 32 mmol/L [employer] CALCIUM 8.7 8.6 - 10.3 mg/dL [employer] PROTEIN, TOTAL 6.9 6.1 - 8.1 g/dL [employer] ALBUMIN 4.2 3.6 - 5.1 g/dL [employer] [facility] GLOBULIN 2.7 1.9 - 3.7 g/dL (calc) [employer] ALBUMIN/GLOBULI N RATIO 1.6 1.0 - 2.5 (calc) [employer] BILIRUBIN, TOTAL 0.4 0.2 - 1.2 mg/dL [employer] [facility] ALKALINE PHOSPHATASE 85 35 - 144 U/L [employer] [facility] AST 16 10 - 35 U/L [employer] [facility] ALT 14 9 - 46 U/L [employer] [facility] Blood Blood / Unknown 01/29/2024 2 :02 PM EST 01/29/2024 2:02 PM EST Narrative [employer] [facility] - 01/31/2024 2:15 AM EST FASTING:NO us Whitney Manzo NP LAB - BLOOD DRAW Edited Resu lt - Final [employer] [address] [address], [employer] [address] [address] * LIPID PANEL (04/24/2023 2:15 PM EST) CHOLESTEROL, TOTAL 158 <200 mg/dL [employer] HDL CHOLESTEROL 50 > OR = 40 mg/dL [employer] [facility] TRIGLYCERIDES 105 <150 mg/dL [employer] LDL-CHOLESTEROL 88 99 mg/dL (calc) [employer] [facility] Comment: Reference range: <100 Desirable range <100 mg/dL for primary prevention; ?? <70 mg/dL for patients with CHD or diabetic patients with > or = 2 CHD risk factors. LDL-C is now calculated using the Cassy calculation, which is a validated novel method providing better accuracy than the Friedewald equation in the estimation of LDL-C. Chaim PEREZ et al. COLT. 2013;310(19): 6356-6005 (http://education.[employer] Industries/faq/VMK265) CHOL/HDLC RATIO 3.2 <5.0 (calc) [employer] NON-HDL CHOLESTEROL 108 <130 mg/dL (calc) [employer] Comment: For patients with diabetes plus 1 major ASCVD risk factor, treating to a non-HDL-C goal of <100 mg/dL (LDL-C of <70 mg/dL) is considered a therapeutic option. Blood Blood / Unknown 04/24/2023 2 :15 PM EST 04/24/2023 2:16 PM EST Narrative [facility] - 04/25/2023 3:52 AM EST FASTING:YES [facility] LAB - BLOOD DRAW Final Result [facility] [address] [address], [employer] [address] [place] [address] from Last 3 Months or Most Recently Relevant to Health Maintenance Insurance [facility] Member Subscriber Plan / Payer (Ef fective 2020-Present) Name:Dimitri Paz Relation to Subscriber:Self Name:Dimitri Paz Payer ID:[id number] Group ID:Not on file Type:Indemnity Address: [facility] [address] [address] Care Teams Gauge Checker Relationship Specialty Start Date End Date Whitney Manzo NP [address] [place] [address] PCP - General Internal Medicine 04/21/22
== END 2024-07-23 13:29 | disposition home or self-care (01) ==
LOC: HO.HOS 12:48
PROVIDERS: Visit Provider Orthopaedic Surgery
DX: M25.312 Other instability, left shoulder (principal)
CPT/HCPCS: 99214; G2211

== ENCOUNTER → 2024-07-23 12:48 | Outpatient (BNVA) | payer OTHER, SELFPAY | PROVIDERS: Visit Provider Orthopaedic Surgery | DX: M25.312 Other instability, left shoulder (principal) | CPT/HCPCS: 99212 ==

== ENCOUNTER 2025-01-07 09:20 | Outpatient (AMB) | payer OTHER, SELFPAY ==
--- NOTE | 2025-01-07 09:34 | MHC.OFFVIS ---
Vital Signs 01/07/25 09:46 Height 5 ft 10 in Weight 256 lb BMI 36.7 Intake Visit Reasons: INJ-B/L knee pain last 06/05/24 Intake Note: Dimitri is a 69 year old male who presents with complaints of bilateral knee pains. He describes his pains as sharp in nature. He has had cortisone injections in the past which gave him fairly good relief. He has tried physical therapy exercises which aggravated his pain. He has also tried Tylenol and anti-inflammatory medicines which gave him minimal relief. He would like to hold off on surgery for as long as possible. Precipitator Operator Required: Yes Precipitator Operator Services: Precipitator Operator Present Precipitator Operator Name: [id number] Allergies Penicillins Allergy (Unknown, Verified 01/07/25 09:46) Unknown Medication List - Last Reconciled 01/07/25 by Hugo Soto MD amlodipine 5 mg PO DAILY aspirin 81 mg PO DAILY atorvastatin 40 mg PO BEDTIME cyclobenzaprine 5 mg PO TID PRN doxylamine succinate (Sleep Aid (doxylamine)) 25 mg PO BEDTIME PRN furosemide (Lasix) 40 mg PO DAILY hydrochlorothiazide 25 mg PO DAILY isosorbide mononitrate ER 30 mg PO DAILY losartan 100 mg PO DAILY melatonin 3 mg PO BEDTIME naproxen 500 mg PO Q12H PRN omeprazole 20 mg PO DAILY sertraline 50 mg PO DAILY PFSH Medical History (Updated 08/23/24 @ 13:21 by Kristine Painter RN) Ambulates with cane SOB (shortness of breath) HLD (hyperlipidemia) HTN (hypertension) Surgical History (Updated 08/23/24 @ 13:04 by Kristine Painter RN) Hx of colonoscopy Hx of cardiac catheterization (2022) Social History Are you a primary medicare biller to a significant other at home: Yes ( in wheelchair) Do you presently have visiting nurse or other home services: 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) Patient Tobacco Use Status: Never used Tobacco Physical Exam Vital Signs: BMI result Body Mass Index 36.7 Extrem Other: Bilateral knee examination shows palpable crepitus with range of motion, pain with range of motion, no instability Office Procedures AMB Joint Injection/Aspiration Joint Injection/Aspiration Primary Site: left knee Injected: 40 mg of, DepoMedrol and 1% plain lidocaine Procedure: The patient tolerated the procedure well Coding 18123 - Large joint Procedure code (CPT) selection complete AMB Joint Injection/Aspiration Joint Injection/Aspiration Primary Site: right knee Prep: site was prepped using aseptic technique Injected: 40 mg of, DepoMedrol and 1% plain lidocaine Procedure: The patient tolerated the procedure well Coding 64164 - Large joint Procedure code (CPT) selection complete Results Reviewed Results Reviewed: X-rays of the patient's bilateral knees taken previously show joint space narrowing, subchondral sclerosis, no acute bony abnormalities Assessment & Plan Assessment & Plan (1) Arthritis of left knee: Code(s): M17.12 - Unilateral primary osteoarthritis, left knee Category: Medical (2) Arthritis of right knee: Code(s): M17.11 - Unilateral primary osteoarthritis, right knee Category: Medical Plan Dimitri presents with bilateral knee pains due to degenerative joint disease. The risks and benefits of bilateral knee cortisone injections were discussed at length with the patient. The patient wished to proceed. He tolerated the injections well. He will continue with his home exercise program. He will contact me prior to his follow-up appointment in 3 months should any questions or concerns arise. Feel free to call me at any time should questions regarding his orthopedic management arise. I spent 20 minutes in reviewing the patient's records and imaging studies, seeing the patient and documenting in the medical record. Orders: Orders AMB Joint Injection/Aspiration Today M17.12 - Unilateral primary osteoarthritis, left knee AMB Joint Injection/Aspiration Today M17.11 - Unilateral primary osteoarthritis, right knee Coding Level of Care Code Est Pt Level 3 (06424) Complex EM visit Add On G2211 Diagnoses Arthritis of left knee M17.12 Arthritis of right knee M17.11 CPT Codes Coding - 87653 Large joint: 73102 - Large joint ([id number]) Coding - 37402 Large joint: 52668 - Large joint ([id number])
[2025-01-07 09:46] VITALS: BMI 36.7
--- OUTSIDE RECORDS SUMMARY | 2025-01-07 10:12 | XMS_ITS | Clinical Summary ---
Author Organization [facility] Address [address] [place] [address] Care Team Providers Care Collect On Delivery Clerk Name Role Phone Whitney Manzo NP Primary Care Provider [phone] Source Comments PLEASE NOTE, if this patient [...] Lifetime need 1 Kit 08/03/19 23 Active furosemide (LASIX) 40 mg tabletIndicatio ns:Bilateral leg edema Take 1 Tablet by mouth once daily 14 Tablet 01/29/20 24 Active compress.stocki ng,knee,reg,med Indications:Adriel ateral leg edema Please dispense 1 pairs of compression stockings 15 mmhg 3 Each 01/29/20 24 Active sertraline (ZOLOFT) 50 mg tabletIndicatio ns:Anxiety and depression TAKE 1 TABLET BY MOUTH ONCE DAILY 90 Tablet 3 03/13/20 24 Active naproxen (NAPROSYN) 500 mg tablet PER [facility] [place] 05/08/19 [address] tabletIndicatio ns:Essential hypertension TAKE 1 TABLET BY MOUTH ONCE DAILY 30 Tablet 5 09/11/19 25 Active hydroCHLOROthia zide (HYDRODIURIL) 25 mg tabletIndicatio ns:Essential hypertension TAKE 1 TABLET BY MOUTH IN THE MORNING 90 Tablet 2 10/09/19 25 Active melatonin 3 mg tabletIndicatio ns:Poor sleep TAKE 1 TABLET BY MOUTH AT BEDTIME NEEDED FOR SLEEP 90 Tablet 1 11/08/19 25 Active omeprazole (PRILOSEC) [address] capsuleIndicati ons:Gastroesoph ageal reflux disease, unspecified whether esophagitis present TAKE 1 CAPSULE BY MOUTH IN THE MORNING BEFORE BREAKFAST 30 Capsule 5 11/19/19 25 Active atorvastatin (LIPITOR) 40 mg tabletIndicatio ns:Hypercholest erolemia Take 0.5 Tablets by mouth nightly at bedtime. 90 Tablet 1 12/05/19 25 Active isosorbide mononitrate ER (IMDUR) 30 mg 24 hr tabletIndicatio ns:Essential hypertension TAKE 1 TABLET BY MOUTH IN THE MORNING 30 Tablet 2 12/11/19 25 Active losartan (COZAAR) 100 mg tablet TAKE 1 TABLET BY MOUTH ONCE DAILY 90 Tablet 2 01/08/20 25 Active amLODIPine (NORVASC) 5 mg tabletIndicatio ns:Essential hypertension TAKE 1 TABLET BY MOUTH ONCE DAILY 30 Tablet 2 01/08/20 25 Active losartan (COZAAR) 100 mg tablet TAKE 1 TABLET BY MOUTH ONCE DAILY 90 Tablet 2 03/22/20 24 025 Discontinued isosorbide mononitrate ER (IMDUR) 30 mg 24 hr tabletIndicatio ns:Essential hypertension TAKE 1 TABLET BY MOUTH IN THE MORNING 30 Tablet 2 09/11/19 25 025 Discontinued amLODIPine (NORVASC) 5 mg tabletIndicatio ns:Essential hypertension TAKE 1 TABLET BY MOUTH ONCE DAILY 30 Tablet 2 10/09/19 25 025 Discontinued Active Problems Problem Noted Date Diagnosed Date PVC (premature ventricular contraction) 08/03/19 Overview (12/15/2022): 12/14/22: seen with PVC 09/19/22: seen with PVC c/w amlodipine 09/09/21: seen with PVC Holter and echo ordered unclear if pt completed this or not [place] (myocardial infarction) 01/12/2021 Overview (01/12/2021): Verbal report from pt Class 2 severe obesity with serious comorbidity and body mass index (BMI) of 37.0 to 37.9 in adult 01/11/2021 Essential hypertension 01/11/2021 Overview (08/02/2022): 12/2021: followed with PVC last appt Seeing Cardiology at [facility]. Hypercholesterolemia 01/11/2021 Anxiety and depression 01/11/2021 Primary [...] se, trivalent, PF 01/29/2024 PNEUMOCOCCAL POLYSACCHARIDE PPV23 (Pneumovax 23) 08/02/2022,01/12/2021 TDAP 01/12/2021 ZOSTER VACCINE, RECOMBINANT (SHINGRIX) ,01/12/2021 [...] e alcohol) Social Connections Answer Date Recorded How often do you feel lonely or isolated from th ose around you? 1 01/29/2024 Financial Resource Strain Answer Date R ecorded Hard to pay for: Food 1 01/29/2024 Stress Answer Date Recorded Do you feel these kinds of stress these days? 1 01/29/2024 Physical Activity Answer Date Recorded Physical Activity 0 11/10/2020 Food Insecurity Answer Date Recorded Hard to pay for: Food 1 01/29/2024 Transportation Needs Answer Date Record ed Hard to pay for: Transportation 1 01/29/2024 Housing Stability Answer Date Recorded Hard to pay for: Rent/Mortgage payment 1 01/29/2024 Safety and Environment Answer Date Cristian rded Safety 1 07/25/2023 Utilities Answer Date Recorded Hard to pay for: Utilities 1 01/28 Employment Answer Date Recorded Stress 0 11/23/2021 [...] Sign Reading Time Taken Comments Blood Pressure 122/70 08/26/2024 10:49 AM EDT Pulse 82 08/26/2024 10:49 AM EDT Temperature 36.8 C (98.2 F) 08/26/2024 10:49 AM EDT Respiratory Rate 20 08/26/2024 10:49 AM EDT Oxygen Saturation 98% 06/20/2024 11:13 AM EDT Inhaled Oxygen Concentration - - Weight 116.1 kg (256 lb) 08/26/2024 10:49 AM EDT Height 167.6 cm (5' 6 ) 08/26/2024 10:49 AM EDT Body Mass Index 41.32 08/26/2024 10:49 AM EDT Plan of Treatment Health Maintenance Due Date Last Done Comments Medicare Annual Wellness Visit [address] CT Colonography 08/16/1999 Colonoscopy 08/16/1999 Colorectal Cancer Screening 08/16/1999 FIT/gFOBT 08/16/1999 Fecal DNA 08/16/1999 Flexible Sigmoidoscopy 08/16/1999 Abdominal Aortic Aneurysm Screening 08/16/2019 Imm-Pneumococcal 50+ (2 of 2 - PCV) 08/03/2023 08/02/2022, 01/12/2021 Falls Prevention 04/24/2024 04/24/2023, , 01/12/2021, Additional history exists Depression Monitoring 09/20/2024 06/20/2024 , 01/29/2024, 07/25/2023, Additional history exists [id number] ( - season) 2024 Imm-Influenza (#1) 2024 01/29/2024, 1 , 01/12/2021 Lipid Screening 08/12/2025 08/12/2024, 03/28, 03/24/2022, Additional history exists Tobacco Screening 08/26/2025 08/26/2024, 01/12/2021 Diabetes Screening 01/28/2027 01/29/2024, 0 04/24/2023, 03/24/2022, Additional history exists Imm-DTaP/Tdap/Td (2 - Td or Tdap) 01/12/2031 021 Imm-Zoster, Recombinant Completed 03/24/2022, 01/12 Hepatitis C Screening Completed 01/29/2024 Alcohol and Drug Screen Completed 06/21/19, 01/29/2024, 04/24/2023, Additional history exists Procedures Procedure Name Priority Date/Time Associated Diagnosis Comments IMAGING SCANNED DOCUMENT 10/30/2024 3:00 AM EDT HEPATITIS C AB W/RFLX HCV RNA, QT, RT PCR Routine 01/29/2024 2:02 PM EST Essential hypertension COMPREHENSIVE METABOLIC PANEL Routine 01/29/2024 2:02 PM EST Bilateral leg edema LIPID PANEL Routine 04/24/2023 2:15 PM EST Hypercholesterolemia from Last 3 Months or Most Recently Relevant to Health Maintenance Results * IMAGING SCANNED DOCUMENT (10/30/2024 3:00 AM EDT) 10/30/2024 3:00 AM EDT Akilah Tavarez [employer] SET UP OPERATOR VERTICAL-C SCAN IMAGING Final Result * HEPATITIS C AB W/RFLX HCV RNA, QT, RT PCR (01/29/2024 2:02 PM EST) HEPATITIS C ANTIBODY NON-REACT DAJA NON-REACT DAJA [facility] Comment: HCV antibody was non-reactive. There is no laboratory evidence of HCV infection. In most cases, no further action is required. However, if recent HCV exposure is suspected, a test for HCV RNA (test code 56808) is suggested. For additional information please refer to http://education.[employer]/faq/LRB10b2 (This link is being provided for informational/ educational purposes only.) Blood Blood / Unknown 01/29/2024 2 :02 PM EST 01/29/2024 2:02 PM EST Narrative [facility] - 01/31/2024 2:15 AM EST FASTING:NO us Whitney Manzo NP LAB - BLOOD DRAW Final Resul t [facility] [address] [address], [facility] [address] [address] * COMPREHENSIVE METABOLIC PANEL (01/29/2024 2:02 PM EST) GLUCOSE 92 65 - 139 mg/dL [facility] Comment: Non-fasting reference interval UREA NITROGEN (BUN) 17 7 - 25 mg/dL [facility] CREATININE (blood) 1.00 0.70 - 1.35 mg/dL [facility] EGFR 81 > OR = 60 mL/min/1. 73m2 [facility] BUN/CREATININE RATIO SEE NOTE: 6 [facility] Comment: Not Reported: BUN and Creatinine are within reference range. SODIUM 142 135 - 146 mmol/L [facility] POTASSIUM 3.7 3.5 - 5.3 mmol/L [facility] CHLORIDE 106 98 - 110 mmol/L [facility] CARBON DIOXIDE 28 20 - 32 mmol/L [facility] CALCIUM 8.7 8.6 - 10.3 mg/dL [facility] PROTEIN, TOTAL 6.9 6.1 - 8.1 g/dL [facility] ALBUMIN 4.2 3.6 - 5.1 g/dL [facility] GLOBULIN 2.7 1.9 - 3.7 g/dL (calc) [facility] ALBUMIN/GLOBULI N RATIO 1.6 1.0 - 2.5 (calc) [facility] BILIRUBIN, TOTAL 0.4 0.2 - 1.2 mg/dL [facility] ALKALINE PHOSPHATASE 85 35 - 144 U/L [facility] AST 16 10 - 35 U/L [facility] ALT 14 9 - 46 U/L [facility] Blood Blood / Unknown 01/29/2024 2 :02 PM EST 01/29/2024 2:02 PM EST Narrative [facility] [facility] - 01/31/2024 2:15 AM EST FASTING:NO Whitney Manzo COTTON SAMPLER LAB - BLOOD DRAW Edited Resu lt - Final [facility] [address] [address], [facility] [address] [address] * LIPID PANEL (04/24/2023 2:15 PM EST) CHOLESTEROL, TOTAL 158 <200 mg/dL [facility] HDL CHOLESTEROL 50 > OR = 40 mg/dL [facility] TRIGLYCERIDES 105 <150 mg/dL [facility] LDL-CHOLESTEROL 88 99 mg/dL (calc) [facility] Comment: Reference range: <100 Desirable range <100 mg/dL for primary prevention; <70 mg/dL for patients with CHD or diabetic patients with > or = 2 CHD risk factors. LDL-C is now calculated using the Chaim-Tesfaye calculation, which is a validated novel method providing better accuracy than the Friedewald equation in the estimation of LDL-C. Chaim SS et al. COLT. 2013;310(19): 2430-8706 (http://education.[employer].Chao[employer]I/faq/KUZ172) CHOL/HDLC RATIO 3.2 <5.0 (calc) [facility] NON-HDL CHOLESTEROL 108 <130 mg/dL (calc) [facility] Comment: For patients with diabetes plus 1 major ASCVD risk factor, treating to a non-HDL-C goal of <100 mg/dL (LDL-C of <70 mg/dL) is considered a therapeutic option. Blood Blood / Unknown 04/24/2023 2 :15 PM EST 04/24/2023 2:16 PM EST Narrative [facility] - 04/25/2023 3:52 AM EST FASTING:YES La HENDRIX LAB - BLOOD DRAW Final Result [facility] [address] [address], [facility] [address] [place] [address] from Last 3 Months or Most Recently Relevant to Health Maintenance Insurance [facility] [place] [id number] Care Teams Collect On Delivery Clerk Relationship Specialty Start Date End Date Whitney Manzo NP [address] [place] [address] PCP - General Internal Medicine 04/21/22
--- OUTSIDE RECORDS SUMMARY | 2025-01-07 10:12 | XMS_ITS | Clinical Summary ---
Author Organization 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 07/25/19 25 Active aspirin 81 mg EC tablet Take 1 tablet (81 mg total) by mouth 1 (one) time each day. Active cyclobenzaprine (FLEXERIL) 5 mg tablet TAKE 1 TABLET 3 (THREE) TIMES A DAY NEEDED FOR MUSCLE SPASM 06/22/19 25 Active Sleep Aid, doxylamine, 25 mg tablet Take 1 tablet (25 mg total) by mouth at bedtime as needed for sleep. 07/25/19 25 Active hydroCHLOROthiaz sharri (HYDRODIURIL) 25 mg tablet Take 1 tablet (25 mg total) by mouth 1 (one) time each day in the morning. Active isosorbide mononitrate (IMDUR) 30 mg 24 hr tablet Take 1 tablet (30 mg total) by mouth 1 (one) time each day in the morning. Active losartan (COZAAR) 100 mg tablet Take 1 tablet (100 mg total) by mouth 1 (one) time each day. Active melatonin 3 mg tablet Take 1 tablet (3 mg total) by mouth at bedtime as needed for sleep. Active naproxen (NAPROSYN) 500 mg tablet TOME JENNIFER TABLETA ORALLY EVERY 12 HOURS NEEDED FOR PAIN 05/08/19 25 Active omeprazole (PriLOSEC) [address] capsule Take 1 capsule (20 mg total) by mouth 1 (one) time each day before breakfast. 07/17/19 25 Active sertraline (ZOLOFT) 50 mg tablet Take 1 tablet (50 mg total) by mouth 1 (one) time each day. Active atorvastatin (LIPITOR) 40 mg tabletIndication s:Coronary artery disease, unspecified vessel or lesion type, unspecified whether angina present, unspecified whether [place] or transplanted heart Take 1 tablet (40 mg total) by mouth 1 (one) time each day. 90 each 2 08/01/19 25 Active furosemide (LASIX) 40 mg tabletIndication s:Chronic heart failure with preserved ejection fraction (HFpEF) (CMS/HCC V24, CMS/HCC V28) Take 1 tablet (40 mg total) by mouth 2 (two) times a day. 90 each 2 12/26/19 25 Active furosemide (LASIX) 40 mg tablet TAKE 1 TABLET BY MOUTH 1 TIME EACH DAY. 90 tablet 1 09/25/19 25 025 Discontinued Active Problems Problem Noted Date Diagnosed Date CAD (coronary artery disease) 12/07/2022 Overview (07/31/2024): Last Assessment & Plan: The patient was reporting episodes of chest discomfort and shortness of breath. Subsequently, the patient completed an exercise stress test in September 2021 which was nondiagnostic given the limited exercise protocol. A cardiac CT was completed October 2022 which showed moderate coronary artery disease and heavy predominantly calcified plaque burden. It was noted that there was a moderate amount of calcified plaque in the proximal LAD with less than 70% stenosis and beyond OM 3 there was a short segment of heavy calcification of the distal circumflex which was suspicious for more than 50% stenosis. CT FFR analysis was completed which showed decreased FFR in the left PDA and medial branch of the ramus intermedius as well as low normal FFR in the distal LAD. Given these findings, we will proceed with a left heart catheterization as a level 1 recommendation for patient with abnormal CT FFR and greater than 40% stenosis noted on cardiac CT for further evaluation of his coronary anatomy. Risks and benefits of coronary angiogram discussed with patient including the increased risk for bleeding and the less than 0.1% risk for DC, stroke or . The patient understands and wishes to proceed with coronary angiogram. All questions answered. He will continue with his current medication regimen with amlodipine, isosorbide, aspirin, and simvastatin. Patient advised to seek emergency medical attention by calling 911 if they were to develop severe dyspnea, chest pain that did not resolve with rest or nitroglycerin, or if they were to faint. He will continue with his plans to complete an echocardiogram as scheduled. Assessment & Plan (12/25/2024 4:25 PM EDT): With history of nonobstructive CAD, left heart catheterization completed in 2022. He denies chest discomfort but reports dyspnea on exertion. Previously he had gone for a nuclear stress test yes this was not completed due to his inability to lay flat and dyspnea when he presented for the test. Will reevaluate his symptoms after increase in diuretic dosage. If able, will complete a nuclear stress test in several weeks. In the meantime he was instructed to go to the emergency department if he has any episodes of chest discomfort or if he experiences shortness of breath at rest or shortness of breath on exertion that does not resolve with rest. He continues on medical mgmt with ASA, amlodipine, imdur and statin. Assessment & Plan (07/31/2024 9:22 AM EDT): With history of nonobstructive CAD, left heart catheterization completed in 2022. He denies chest discomfort but reports dyspnea on exertion. Will have him completed nuclear stress test before proceeding with his upcoming procedure. At this time, he continues on aspirin, atorvastatin, isosorbide and amlodipine. Will update echocardiogram as well to assess cardiac function and for any wall motion abnormality. Will reevaluate his cardiac risk assessment for his upcoming procedure after he completes his nuclear stress test. Patient advised to seek emergency medical attention by calling 911 if they were to develop severe dyspnea, chest pain that did not resolve with rest or nitroglycerin, or if they were to faint. Orders: ECG 12 lead atorvastatin (LIPITOR) 40 mg tablet; Take 1 tablet (40 mg total) by mouth 1 (one) time each day. Nuclear stress test with myocardial perfusion; Future Lipid panel with reflex to direct LDL; Future Transthoracic echocardiogram (TTE) complete with PRN contrast, bubble, strain, and 3D order panel; Future perflutren lipid microsphere (DEFINITY) 1.3 mL in sodium chloride 0.9% 8.7 mL injection Chest pain 09/19/2022 Overview (07/31/2024): Last Assessment & Plan: The patient was last seen by Dr. Doyle where he was experiencing episodes of shortness of breath and chest discomfort. An exercise stress test was completed September 2021 which showed poor functional capacity for age and gender. The patient developed significant shortness of breath with limited exercise protocol. He had no ischemic EKG changes and no arrhythmias noted. The test was nondiagnostic given the limited exercise protocol and was recommended the patient complete a cardiac CT scan or pharmacological nuclear stress test for further evaluation. Given his symptoms and risk factors for CAD, we will need to consider the possibility of underlying coronary artery disease as a cause of his symptoms. Therefore, the patient has an intermediate pretest probability for the presence of obstructive coronary artery disease (2020 ACC chest pain guidelines). The patient had an exercise nuclear stress test in the past that was nondiagnostic. As such, given his exertional symptoms chest discomfort, we will proceed with a cardiac CT scan in order to evaluate for any obstructive coronary artery disease as a cause of his symptoms (the use of a cardiac CT scan for evaluation of possible coronary artery disease is recommended by 202 ACC chest pain guidelines). Notify him of the results as soon as they become available. We will also have him complete an updated echocardiogram to reevaluate his LV function and assess for any valvular disease as a cause of his symptoms. Patient advised to seek emergency medical attention by calling 911 if they were to develop severe dyspnea, chest pain that did not resolve with rest or nitroglycerin, or if they were to faint. Multiple premature ventricular complexes 022 Overview (07/31/2024): 12/14/22: seen with PVC 09/19/22: seen with PVC c/w amlodipine 09/09/21: seen with PVC Holter and echo ordered unclear if pt completed this or not Dyspnea 04/02/2021 Overview (07/31/2024): Last Assessment & Plan: Patient has been experiencing exertional dyspnea which has not worsened. He has multiple risk factors for coronary artery disease including hypertension, family history of coronary artery disease, hyperlipidemia, obesity, former smoker. Given his exertional symptoms, further evaluation is needed. I will have the patient complete a cardiac CT scan to evaluate for coronary artery disease as a cause of his symptoms. Also have him complete lab work including a CMP and CBC. He will also repeat an updated echocardiogram to reevaluate his LV function and assess for any valvular disease as a cause of his symptoms. Assessment & Plan (12/25/2024 4:25 PM EDT): See HFpEF plan. Also referred the patient to pulmonology as he has periods of wheezing and is a former smoker. No wheezing on exam today. Orders: Ambulatory referral to Pulmonology; Future Assessment & Plan (07/31/2024 9:22 AM EDT): Will obtain nuclear stress test. Orders: ECG 12 lead Nuclear stress test with myocardial perfusion; Future Transthoracic echocardiogram (TTE) complete with PRN contrast, bubble, strain, and 3D order panel; Future perflutren lipid microsphere (DEFINITY) 1.3 mL in sodium chloride 0.9% 8.7 mL injection Myocardial infarction (CMS/HCC V24, CMS/HCC V28) 01/12/2021 Overview (07/31/2024): Verbal report from pt Essential hypertension 01/11/2021 Overview (07/31/2024): 12/2021: followed with PVC last appt Seeing Cardiology at [facility]. Assessment & Plan (12/25/2024 4:25 PM EDT): BP is well controlled today ; continue on current antihypertensive regimen. I have reviewed with the patient the importance of a heart healthy lifestyle which includes eating a low-fat low-salt diet, getting regular exercise, maintaining a healthy weight, not smoking, and following up with routine medical care. Assessment & Plan (07/31/2024 9:22 AM EDT): Blood pressure is well-controlled today, 130/64, continue on current antihypertensive medication regimen. Orders: ECG 12 lead Hypercholesterolemia 01/11/2021 Overview (07/31/2024): Last Assessment & Plan: The patient has a history of hyperlipidemia as well as a history of coronary artery disease seen on cardiac CT scan. He continues on simvastatin 40 mg orally daily as prescribed. His last LDL cholesterol was noted to be 89. His goal LDL is less than 70 given his history. We will reassess a fasting lipid panel to reassess his lipid control and make any adjustments as necessary. Assessment & Plan (12/25/2024 4:25 PM EDT): Last lipid panel reviewed from 2023 showing an LDL level of 88 which is above his goal range of less than 70. Atorvastatin increased to 40 mg daily in July. Will recheck at next visit. Assessment & Plan (07/31/2024 9:22 AM EDT): Last lipid panel reviewed from 2023 showing an LDL level of 88 which is above his goal range of less than 70. Atorvastatin increased to 40 mg daily. Patient to recheck lipid panel fasting in September. Orders: ECG 12 lead Lipid panel with reflex to direct LDL; Future Encounters Date Type Department Care Team Description 12/30/2024 Telephone [facility] [address] [facility] [address] [place] [address] Carol Jacob NP 12/27/2024 Results Follow-Up [facility] [address] [facility] [address] [place] [address] Carol Jacob NP 12/25/2024 3:10 PM EDT Office Visit [facility] [address] [place] [address] Carol Jacob NP Chronic heart failure with preserved ejection fraction (HFpEF) (CMS/HCC V24, CMS/HCC V28) (Primary Dx); Dyspnea, unspecified type; Coronary artery disease, unspecified vessel or lesion type, unspecified whether angina present, unspecified whether [place] or transplanted heart; Essential hypertension; Hypercholesterolemia 12/18/2024 Telephone [facility] [address] [place] [address] Nas Tapia MD 10/30/2024 12:30 PM EDT Ancillary Procedure [facility] [address] [place] [address] Coronary artery disease, unspecified vessel or lesion type, unspecified whether angina present, unspecified whether [place] or transplanted heart; Dyspnea, unspecified type 10/14/2024 Telephone [facility] [address] [place] [address] Carol Jacob NP from Last 3 Months Surgical History Surgery Date Site/Laterality Comments COLONOSCOPY PROCEDURE: HISTORICAL COLONOSCOPY Medical History Medical History Date Comments Anxiety DX:Anxiety Depression DX:Depression Hypercholesterolemia DX:Hypercho lesterolemia Class 2 obesity DX:Class 2 obesi ty Epigastric pain DX:Epigastric pa in Difficulty sleeping DX:Difficult y sleeping HTN (hypertension) DX:HTN (hyper tension) Osteoarthritis of both knees DX: Osteoarthritis of both knees Social History Tobacco Use Types Packs/Day Years Used Date Smoking Tobacco: Former Smokeless Tobacco: Never Tobacco Cessation:Counseling Given: Not Answered Alcohol Use Standard Drinks/Week Comments Not Currently 0 (1 standard drink = 0.6 oz pur e alcohol) Sex and Gender Information Value Date Recorded Sex Assigned at Not on file Legal Sex Male 2:14 AM EST Gender Identity Not on file Sexual Orientation Not on file Obstetrics History Last Filed Vital Signs Vital Sign Reading Time Taken Comments Blood Pressure 126/64 12/25/2024 3:09 PM EDT Pulse 74 12/25/2024 3:09 PM EDT Temperature - - Respiratory Rate - - Oxygen Saturation 97% 12/25/2024 3:09 PM EDT Inhaled Oxygen Concentration - - Weight 117 kg (258 lb) 12/25/2024 3:09 PM EDT Height 177.8 cm (5' 10 ) 12/25/2024 3:09 PM EDT Body Mass Index 37.02 12/25/2024 3:09 PM EDT Plan of Treatment Upcoming Encounters Date Type Department Care Team (Late st Contact Info) Description 01/09/2025 3:10 PM EDT Office Visit [facility] [address] [place] [address] Carol Jacob NP [address] [place] [address] [address] [place] [address] 02/19/2025 9:10 AM EST Office Visit [facility] [address] [place] [address] Gwen Kwon NP [address] [place] [address] [address] [place] [address] Health Maintenance Due Date Last Done Comments Colorectal Cancer Screening: Colonoscopy 1955 RSV Immunization Adult Patients (1 - Risk 60-74 years 1-dose series) 2014 Abdominal Aortic Aneurysm (AAA) Screen 02/27/2022 Falls Risk Assessment 02/27/2022 Social Influencers of Health Screening 02/27/2022 Pneumococcal Vaccine: 50+ Years (2 of 2 - PCV) 08/03/2023 08/02/2022, 01/12/2021 Depression Screening 03/27/2024 COVID-19 Vaccine ( - season) 2024 Influenza Vaccine (#1) 2024 , 03/24/2022, 01/12/2021 Hypertension/CHF/CAD Annual BMP Blood Test 12/27/2025 12/27/2024, 01/29/2024, 04/24/2023 Cholesterol Screening (Lipid Panel) 08/12/2029 08/12/2024, 04/24/2023, 04/24/2023, Additional history exists DTaP,Tdap,and Td Vaccines (2 - Td or Tdap) 01/12/2031 01/12/2021 Zoster Vaccines Completed 03/24/2022, 01/12/2021 Hepatitis C Screening Completed 01/29/2024 HIB Vaccines Aged Out No longer eligi ble based on patient's age to complete this topic HPV Vaccines Aged Out No longer eligi ble based on patient's age to complete this topic Hepatitis A Vaccines Aged Out No long er eligible based on patient's age to complete this topic Hepatitis B Vaccines Aged Out No long er eligible based on patient's age to complete this topic IPV Vaccines Aged Out No longer eligi ble based on patient's age to complete this topic MMR Vaccines Aged Out No longer eligi ble based on patient's age to complete this topic Meningococcal ACWY Vaccine Aged Out N o longer eligible based on patient's age to complete this topic Meningococcal B Vaccine Aged Out No l onger eligible based on patient's age to complete this topic RSV Immunization Patients Under 20 months Aged Out No longer eligible based on patient's age to complete this topic Varicella Vaccines Aged Out No longer eligible based on patient's age to complete this topic Procedures Procedure Name Priority Date/Time Associated Diagnosis Comments BASIC METABOLIC PANEL Routine 12/27/2024 9:54 AM EDT Chronic heart failure with preserved ejection fraction (HFpEF) ([facility] V24, [facility] V28) TRANSTHORACIC ECHOCARDIOGRAM (TTE) COMPLETE Routine 10/30/2024 1:00 PM EDT Coronary artery disease, unspecified vessel or lesion type, unspecified whether angina present, unspecified whether [place] or transplanted heart Dyspnea, unspecified type LIPID PANEL WITH REFLEX TO DIRECT LDL Routine 08/12/2024 8:42 AM EDT Coronary artery disease, unspecified vessel or lesion type, unspecified whether angina present, unspecified whether [place] or transplanted heart Hypercholesterolemia from Last 3 Months or Most Recently Relevant to Health Maintenance Results * Basic metabolic panel (12/27/2024 9:54 AM EDT) Sodium 140 133 - 145 mmol/L LAB CHEMISTRY METHOD 12/27/2024 2:[address] [facility] Potassium 4.2 3.5 - 5.5 mmol/L LAB CHEMISTRY METHOD 12/27/2024 2:28 PM [facility] Chloride 106 96 - 110 mmol/L LAB CHEMISTRY METHOD 12/27/2024 2:[address] [facility] CO2 26 21 - 32 mmol/L LAB CHEMISTRY METHOD 12/27/2024 2:28 PM [facility] Anion Gap 8 3 - 11 LAB CHEMISTRY METHOD 12/27/2024 2:[address] [facility] Glucose 99 70 - 100 mg/dL LAB CHEMISTRY METHOD 12/27/2024 2:[address] [facility] BUN 18 5 - 25 mg/dL LAB CHEMISTRY METHOD 12/27/2024 2:[address] [facility] Creatinine 0.86 0.70 - 1.30 mg/dL LAB CHEMISTRY METHOD 12/27/2024 2:[address] [facility] eGFR 93 >=60 mL/min/1. 73m2 LAB CHEMISTRY METHOD 12/27/2024 2:[address] [facility] Comment:Calculation based on the Chronic Kidney Disease Epidemiology Collaboration (CKD-EPI) equation refit without adjustment for race. BUN/Creatinine Ratio 20.9 LAB CHEMISTRY METHOD 12/27/2024 2:[address] [facility] Calcium 8.7 8.5 - 10.5 mg/dL LAB CHEMISTRY METHOD 12/27/2024 2:[address] [facility] Blood Venous blood specimen / Unknown Venipuncture / Unknown 12/27/2024 9:54 AM EDT 12/27/2024 11:10 AM EDT us Carol Jacob [facility] LAB BLOOD ORDERABLES Final Res ult [facility] [address] [place] [address], * (ABNORMAL) TRANSTHORACIC ECHOCARDIOGRAM (TTE) COMPLETE (10/30/2024 1:00 PM EDT) Left Atrium Minor Raymond 5.7 cm CV PACS Left Atrium Major Raymond 6.0 cm CV PACS LA Area Sys (A2C) 24 cm2 CV PACS LA Area Sys (A4C) 26 cm2 CV PACS LA Volume (BP) 82 mL CV PACS RA Area 16.2 cm2 CV PACS RA 2D Volume 43 mL CV PACS AV Mean Gradient 7 mmHg CV PACS Ao VTI 40.9 cm CV PACS AV Peak Alexandre 2.1 m/s CV PACS AV Peak Gradient 17 mmHg CV PACS AV Area Continuity Equation 2.7 cm2 CV PACS AV Area Peak Velocity 2.4 cm2 CV PACS Aortic Sinus Valsalva 3.5 cm CV PACS Ascending Aorta 3.7 cm CV PACS IVC Proximal 1.6 cm CV PACS IVSD 1.1(A) 0.6 - 1.0 cm CV PACS LVIDD 6.0(A) 4.2 - 5.8 cm CV PACS LVIDS 3.8 2.5 - 4.0 cm CV PACS LVOT Diameter 2.2 cm CV PACS LVOT Mean Grad 3 mmHg CV PACS LVOT Peak VTI 29.1 cm CV PACS LVOT Mean Alexandre 0.8 m/s CV PACS LVOT Peak Alexandre 1.3 m/s CV PACS LVOT Peak Gradient 7 mmHg CV PACS LVPWD 1.1(A) 0.6 - 1.0 cm CV PACS MV E' Tissue Velocity Lateral 10 cm/s CV PACS MV E' Tissue Velocity Septal 8 cm/s CV PACS LVOT Area 3.8 cm2 CV PACS LVOT Stroke Volume 111 mL CV PACS E Wave Deceleration Time 197 119 - 242 ms CV PACS MV Peak A Alexandre 1.00 m/s CV PACS MV Peak E Alexandre 1.00 m/s CV PACS RV Diastolic Basal Dimension 3.6 2.5 - 4.1 cm CV PACS RV S' 17 cm/s CV PACS TAPSE 29 mm CV PACS TR Peak Velocity 2.60 m/s CV PACS TR Peak Gradient 28 mmHg CV PACS E/E' Ratio Septal 13 CV PACS E/E' Ratio Averaged 11 CV PACS LVOT Stroke Index 0 mL/m2 CV PACS Relative Wall Thickness ratio 0.35 0.24 - 0.42 CV PACS LVOT:AV VTI Index 0.71 CV PACS FS 37 % CV PACS LV Mass 2D 265(A) 96 - 200 g CV PACS Ascending Aorta Index 1.60 cm/m2 CV PACS LVOT flow 304 mL/s CV PACS RA 2D Volume Index 19 18 - 32 mL/m2 CV PACS RANJANA Index (VTI) 1.17 cm2/m2 CV PACS RANJANA Index (Pk Alexandre) 1.04 cm2/m2 CV PACS LVIDD Index 2.60 cm/m2 CV PACS LVIDS Index 1.65 cm/m2 CV PACS AV Velocity Ratio 0.64 CV PACS E/A Ratio 1.0 0.8 - 2.0 CV PACS E/E' Ratio Lateral 10 CV PACS LA Volume Index (BP) 34 mL/m2 CV PACS LV Mass Index 2D 121 50 - 102 g/m2 CV PACS BSA 2.39 m2 CV PACS Right Ventricular Peak Systolic Pressure 35 mmHg CV PACS Est. RA Pressure 8 mmHg CV PACS LVOT Cardiac Output 0.0 L/min CV PACS LVOT Cardiac Index 4.0 L/min/m2 CV PACS RV Free Wall Peak S' 17 cm/s CV PACS RA Major Raymond 5.3 cm CV PACS RA Major Raymond Index 2.3 2.1 - 2.7 cm/m2 CV PACS MV PHT 57 ms CV PACS AV Area 2D 2.4 cm2 CV PACS RANJANA Index (2D) 1.04 cm2/m2 CV PACS Inferior Vena Cava Diameter At Expiration 1.6 cm CV PACS IVC Expiration Index 0.69 cm/m2 CV PACS AV Area Index 1.0 CV PACS Anatomical Region Laterality Modality Ultrasound Narrative 10/31/2024 10:39 AM EDT Left ventricle cavity is mildly dilated. Left ventricular systolic function is in the normal range with an ejection fraction of 55-60%. No regional LV wall motion abnormalities noted. Left ventricle borderline hypertrophy. Right ventricle cavity is normal. Right ventricular systolic function is normal. The RVSP is estimated at 36 mmHg. The left atrium is mildly dilated. No hemodynamically significant valve disease. Compared to prior echo from 2021, the LV appears slightly more enlarged. Left Ventricle Left ventricle cavity is dilated. Systolic function is normal with an ejection fraction of 55-60%. There are no regional LV wall motion abnormalities. Indeterminate diastolic function. Right Ventricle Right ventricle cavity appears normal. Systolic function is normal. Left Atrium Left atrium volume index is mildly increased. Right Atrium Right atrium cavity is normal. IVC/SVC RA pressures is estimated to be 8 mmHg (IVC diameter <21 mm and decreases <50% during inspiration). Mitral Valve The leaflets are mildly thickened. There is mild regurgitation. There is no evidence of mitral valve stenosis. Tricuspid Valve The leaflets exhibit normal excursion. There is trace regurgitation. The RVSP is estimated at 35 mmHg. Aortic Valve The aortic valve is trileaflet. The leaflets are mildly thickened. There is no regurgitation or stenosis. Pulmonic Valve Visualized portions of the pulmonic valve appear normal. There is trace pulmonic valve regurgitation. Ascending Aorta The Sinus of Valsalva is normal. The ascending aorta is (3.7 cm). Pericardium Pericardium appears normal. There is no pericardial effusion. Study Details Overall the study quality was adequate. us Carol Jacob NP CV ECHO PROCEDURES Final Resul t * Lipid panel with reflex to direct LDL (08/12/2024 8:42 AM EDT) Cholesterol 130 0 - 200 mg/dL LAB CHEMISTRY METHOD 08/12/2024 11:39 AM [facility] Triglycerides 45 0 - 150 mg/dL LAB CHEMISTRY METHOD 08/12/2024 11:39 AM [facility] HDL 51 >=40 mg/dL LAB CHEMISTRY METHOD 08/12/2024 11:39 AM [facility] LDL Calculated 70 0 - 100 mg/dL LAB CHEMISTRY METHOD 08/12/2024 11:39 AM [facility] VLDL Cholesterol Adi 9 mg/dL LAB CHEMISTRY METHOD 08/12/2024 11:39 AM [facility] Non HDL Chol. (LDL+VLDL) 79 <145 mg/dL LAB CHEMISTRY METHOD 08/12/2024 11:39 AM [facility] Chol/HDL Ratio 2.5 0.0 - 4.4 LAB CHEMISTRY METHOD 08/12/2024 11:39 AM [facility] Blood Venous blood specimen / Unknown Venipuncture / Unknown 08/12/2024 8:42 AM EDT 08/12/2024 9:51 AM EDT us Carol Jacob [facility] LAB BLOOD ORDERABLES Final Res ult [facility] [facility] [address] [place] [address], from Last 3 Months or Most Recently Relevant to Health Maintenance Insurance [facility] Member Subscriber Plan / Payer (Ef fective 2020-Present) Name:Dimitri Diaz Relation to Subscriber:Self Name:Dimitri Paz Payer ID:[id number] Group ID:[id number] Type:Not on file Address: [place] [address] [address] [phone] Care Teams [employer] Work[employer] Relationship Specialty Start Date End Date Akilah Tavarez FNP [address] [place] [address] PCP - General 01/15/21
== END 2025-01-07 10:09 | disposition home or self-care (01) ==
LOC: HO.HOS 09:21
PROVIDERS: PCP Nurse Practitioner; Visit Provider Orthopaedic Surgery
DX: M17.0 Bilateral primary osteoarthritis of knee (principal)
CPT/HCPCS: 20610; 99213

== ENCOUNTER → 2025-01-07 09:20 | Outpatient (BNVA) | payer OTHER, SELFPAY | PROVIDERS: PCP Nurse Practitioner; Visit Provider Orthopaedic Surgery | DX: M17.0 Bilateral primary osteoarthritis of knee (principal) | CPT/HCPCS: 20610; 99212; J1010; J2003 ==